=== PATIENT | male | born 2005 ===

== ENCOUNTER 2025-01-18 06:05 | Day surgery (SDC) | payer OTHER, SELFPAY ==
[2025-01-18] VITALS (12 sets, daily range): BP systolic 120–144; BP diastolic 59–78; PULSE 48–80; RESP 11–20; TEMP 36.2–37; O2SAT 95–100; BMI 31.3
--- NOTE | 2025-01-18 06:47 | W.PM.DSUDISC ---
Date of service: 01/18/25 Discharge Plan Disposition Patient Disposition: Home Condition: Good Discharge Details Reason For Visit: Adenoidectomy Attending Provider: Nahum Graham Primary Care Provider: Uziel Jones Home Meds and New Rx's Prescriptions: No Action albuterol sulfate 90 mcg/actuation HFA aerosol inhaler 2 puff inhalation Q6H PRN cetirizine 10 mg tablet 10 mg PO DAILY PRN fluticasone propionate [Flovent HFA] 44 mcg/actuation HFA aerosol inhaler 2 puff inhalation BID Rx Instructions: administer with spacer ondansetron 4 mg tablet,disintegrating 4 mg PO Q8H PRN (Reason: nausea and vomiting) polyethylene glycol 3350 [Miralax] 17 gram/dose powder 17 g PO DAILY PRN albuterol sulfate 2.5 mg /3 mL (0.083 %) solution for nebulization 2.5 mg inhalation Q6H Discharge Instructions Additional Instructions: My cell phone number is [phone]. Please call with any questions or concerns. If you are unable to reach me and you feel it is an emergency, please call 911 or proceed to the emergency room Stand Alone Forms: [facility] Referrals: Nahum Graham MD [ [facility] STAFF PHYSICIAN] - (1 month with or Swati, please call for appointment prior to patient's departure) DS: Diagnosis Discharge Diagnosis (1) Adenoidal hypertrophy: Status: Acute
[2025-01-18] MEDS: Lactated Ringers 1,000 ML 75 ML IV (06:50)
--- NOTE | 2025-01-18 07:16 | W.ANESPRE ---
General Info Date of Service Date Performed: 01/18/25 Height: 5 ft 6 in Weight: 88 kg Body Mass Index (BMI): 31.3 Surgical Procedure: Operation Date: 01/18/25 07:40 Proposed Procedure Side Surgeon p Adenoidectomy Nahum Graham MD Actual Procedure Side Surgeon p Adenoidectomy Nahum Graham MD Pre-Op Diagnosis Post-Op Diagnosis Adenoidal hypertrophy Meds Allergies and Home Medications Allergies Allergy/AdvReac Type Severity Reaction Status Date / Time No Known Allergies Allergy Verified 01/18/25 06:23 Home Medication ?Medication ?Instructions ?Recorded albuterol sulfate 90 mcg/actuation 2 puff inhalation Q6H PRN 04/25/22 aerosol inhaler cetirizine 10 mg tablet 10 mg PO DAILY PRN 03/13/23 fluticasone propionate 44 2 puff inhalation BID 03/13/23 mcg/actuation HFA aerosol inhaler (Flovent HFA) ondansetron 4 mg disintegrating 4 mg PO Q8H PRN nausea and vomiting 03/13/23 tablet polyethylene glycol 3350 17 17 g PO DAILY PRN 03/13/23 gram/dose oral powder (Miralax) albuterol sulfate 2.5 mg/3 mL 2.5 mg inhalation Q6H 12/21/24 (0.083 %) solution for nebulization Current Visit Medications: Current Medications Generic Name Dose Route Start Last Admin Trade Name Freq PRN Reason Stop Dose Admin Acetaminophen 320 - 650 mg 01/18/25 06:49 Acetaminophen Solution 650 Mg/20.3 Ml Cup PO 02/17/25 06:48 Q4H PRN PRN Ringer's Solution 1,000 mls @ 75 mls/hr 01/18/25 06:00 01/18/25 06:50 IV 01/18/25 23:59 75 mls/hr INFUSION HOMA Administration Cefazolin Sodium/Dextrose 2 gm in 50 mls @ 100 mls/hr 01/18/25 06:00 Ancef Duplex IVPB 01/18/25 23:59 PREOP HOMA Tranexamic Acid 1,000 mg/ 100 mls @ 600 mls/hr 01/18/25 06:00 Sodium Chloride IVPB 01/18/25 23:59 PREOP HOMA IV Miscellaneous Supplies 1 each 01/18/25 06:00 Iv Access IV 01/18/25 23:59 DIRECTED HOMA Ibuprofen 600 mg 01/18/25 06:49 Ibuprofen 600 Mg Tab PO 02/17/25 06:48 Q6H PRN PRN Sodium Chloride 0 ml 01/18/25 06:00 Normal Saline Flush 10 Ml Syr IV 01/18/25 23:59 PRN PRN Sodium Chloride 0 ml 01/18/25 06:00 Normal Saline 10 Ml Vial IJ 01/18/25 23:59 DIRECTED PRN Sterile Water 0 ml 01/18/25 06:00 Water,Injection,Sterile 10 Ml Vial IJ 01/18/25 23:59 DIRECTED PRN PFSH Active Problems Active Problems: Problem Status Onset Code Adenoidal hypertrophy Acute J35.2 Ear fullness Acute H93.8X9 Sleep apnea Acute G47.30 Snoring Acute R06.83 Medical History Medical History Acquired pes planus of left foot Surgical History Surgical History Hx of wisdom tooth extraction Tobacco Smoking/Tobacco Use Status: Never Passive smoking exposure: No Alcohol Alcohol Intake: current Alcohol intake frequency: holidays/special occasions only Substance Use Substance use: Never Substance use type: does not use Vital Signs and Lab Results Vital Signs Most Recent Vital Signs in EMR: Most Recent Vital Signs Temp Pulse Resp BP Pulse Ox 36.7 C 48 L 16 125/70 98 01/18/25 06:37 01/18/25 06:37 01/18/25 06:37 01/18/25 06:37 01/18/25 06:37 Lab Results Blood Type / Crossmatch: No Data to Display Complete Blood Count: No Data to Display Complete Metabolic Panel: No Data to Display Liver Function Panel: No Data to Display Coagulation Panel: No Data to Display Cardiac Panel: No Data to Display Arterial Blood Gas: No Data to Display Venous Blood Gas: No Data to Display Pancreas Panel: No Data to Display Thyroid Panel: No Data to Display Infectious Disease: No Data to Display Blood Cultures: No Data to Display Toxicology Panel: No Data to Display Anesthesia Assessment and Plan Anesthesia History Personal History: No History of Anesthesia Complications Family History: No Family History of Anesthesia Complications Exercise Tolerance Exercise Tolerance: Metabolic Equivalents>4 Pertinent Negatives Pertinent Negatives: No Symptoms of GERD Cardiac & Pulmonary Exam Cardiac Exam: Normal S1/S2 Heart Sounds Pulmonary Exam: Clear Bilateral Breath Sounds Implantable Cardiac Device Does patient have a Pacemaker or an ICD?: No Airway Exam Known Difficult Airway: No Mallampati Class: 2 Mouth Opening: Normal (> 3cm) Thyromental Distance: Greater than 3 cm Neck Range of Motion: Full ROM Neck Circumference: Normal Teeth Condition: Normal Dentition ASA Classification ASA Score: ASA 2 Emergency Case?: No NPO Status NPO Status: NPO Clears >2 hours, Solids >8 hours Anesthesia Plan Resuscitation Status: Full Code Anesthesia Technique: General Anesthesia Airway Planned: Endotracheal Tube Monitors Used: Standard Monitors
[2025-01-18] MEDS: ceFAZolin 2 GM/50 ML BAG IVPB (07:27)
[2025-01-18] MEDS: TRANEXAMIC ACID 1,000 MG in Normal Saline 90 ML 600 MG IVPB (07:36)
--- NOTE | 2025-01-18 07:45 | ADE_PTH ---
PATIENT: Davis Vargas LOC: [facility] U#:[id number] AGE/SX: 19/M ROOM: RE01/18/[address]: Nahum Graham MD : 2005 BED: DIS: 01/18/2025 SPEC #: [id number] RECD: 01/18/25 13:11 STATUS: ROCCO REQ #: [id number] ARJUN: 01/18/25 07:[address]: Nahum Graham DEPT: Surgical Specimen RECD BY: Annabella Long ENTERED: 01/18/25 13:12 SP TYPE: Adenoids OTHR DR: Uziel Jones Tissues: 1 - ADENOID AGE 16 & OVER Procedures: GROSS AND MICRO LEVEL 3 Comments: [id number]
--- NOTE | 2025-01-18 08:04 | W.PM.DSUDISC ---
Date of service: 01/18/25 Discharge Plan Disposition Patient Disposition: Home Condition: Good Discharge Details Reason For Visit: Adenoidectomy Attending Provider: Nahum Graham Primary Care Provider: Uziel Jones Home Meds and New Rx's Prescriptions: No Action albuterol sulfate 90 mcg/actuation HFA aerosol inhaler 2 puff inhalation Q6H PRN cetirizine 10 mg tablet 10 mg PO DAILY PRN fluticasone propionate [Flovent HFA] 44 mcg/actuation HFA aerosol inhaler 2 puff inhalation BID Rx Instructions: administer with spacer ondansetron 4 mg tablet,disintegrating 4 mg PO Q8H PRN (Reason: nausea and vomiting) polyethylene glycol 3350 [Miralax] 17 gram/dose powder 17 g PO DAILY PRN albuterol sulfate 2.5 mg /3 mL (0.083 %) solution for nebulization 2.5 mg inhalation Q6H Discharge Instructions Additional Instructions: My cell phone number is [phone]. Please call with any questions or concerns. If you are unable to reach me and you feel it is an emergency, please call 911 or proceed to the emergency room Stand Alone Forms: [facility] Referrals: Nahum Graham MD [ [facility] STAFF PHYSICIAN] - (1 month with mo or Swati, please call for appointment prior to patient's departure) Discharge Orders Discharge Orders: Discharge Order (Routine); Ordered 01/18/25 Ordered By: Nahum Graham DS: Diagnosis Discharge Diagnosis (1) Adenoidal hypertrophy: Status: Acute
--- NOTE | 2025-01-18 08:05 | W.PM.OP ---
Operative Note Operative Note PRE-OP DIAGNOSIS: Adenoidal hypertrophy POST-OP DIAGNOSIS: same PROCEDURE: Adenoidectomy SURGEON: Nahum Graham ANESTHESIA TYPE: General LMA/ETT Refer to Anesthesia Record ESTIMATED BLOOD LOSS: 20 PATHOLOGY: other (Adenoids) COMPLICATIONS: None Patient was transported to: PACU Patient's condition: stable Indications: The patient has adenoid hypertrophy that is causing ear fullness and has failed to respond to time, antibiotics, and steroids. Options were explained to the patient regarding further management. He elected to undergo the above procedure. Consent was and signed. All questions were answered for both the patient and his mother. H&P was reviewed. There have been no changes. Findings: 3+ adenoids impinging upon the mundo bilaterally, 2+/3+ tonsils,, no discrete masses or lesions. Palate intact to inspection and palpation. Posterior choana widely patent at the end of the case Procedure Description: After obtaining an adequate level of general endotracheal anesthesia the patient was positioned in the supine position and prepped and draped in appropriate fashion. A Tavia Tj mouthgag was carefully introduced into the oral cavity and opened to reveal a soft and hard palate which were examined revealing no evidence of an occult cleft palate. Catheter was passed through the right nares, grasped at the back of the throat and brought forward to retract the soft palate out of the way. A dental mirror was used to examine the adenoids and then the appropriate size adenoidal curette was used to remove the bulk of the adenoidal tissue. This was sent for pathology. Following this, electrocautery suction tip catheter set on 35 W coagulation was used to achieve relative hemostasis within the adenoidal bed, and to ablate the residual adenoidal tissue. Care was taken not to damage the mundo. Following this, the catheter was relaxed and removed and the Tavia-Tj mouthgag was relaxed and removed. The patient was then awakened and extubated by anesthesia and taken the recovery room in stable condition. I was present throughout the entire case. Date of Procedure: 01/18/25
--- NOTE | 2025-01-18 08:23 | W.ANESPOSTOP ---
Postoperative Evaluation Date, Time and Location Date Performed: 01/18/25 Time Performed: 08:16 Patient Location: PACU Vital Signs Most Recent Imported Vital Signs: Most Recent Vital Signs Temp Pulse Resp BP Pulse Ox 37.0 C 52 L 20 130/72 98 01/18/25 08:15 01/18/25 08:16 01/18/25 08:16 01/18/25 08:16 01/18/25 08:16 Pain Score Most Recent Pain Score: Most Recent Pain Score Pain Level 0 01/18/25 08:15 Assessment Mental Status: Awake (Alert & Oriented to Patient Baseline) Airway and Respiratory Function: Patent airway with normal (patient baseline) respiratory exam Cardiovascular Function: Hemodynamically Stable Hydration Status: Adequately Hydrated Nausea & Vomiting: No Nausea or Vomiting Pain: Pt. Denies Any Pain Peripheral Nerve Block: Patient did not receive a nerve block
[2025-01-18] MEDS: Ibuprofen 600 MG TAB PO (08:44)
== END 2025-01-18 10:05 | disposition home or self-care (01) ==
PROVIDERS: PCP Family Medicine; Visit Provider Otolaryngology
PROC: (CPT 42831; principal; 2025-01-18 07:30)
DX: J35.2 Hypertrophy of adenoids (principal)
CPT/HCPCS: 42831; 88304; J0131; J0690; J1100; J2003; J2250; J2405; J2704; J3010